=== PATIENT | male | born 1985 | race Caucasian/White ===

== ENCOUNTER 2021-10-18 17:29 | Emergency (ER) | payer OTHER, SELFPAY ==
[2021-10-18 17:40] VITALS: BP 139/94; PULSE 119; RESP 16; TEMP 38.2; O2SAT 100
--- NOTE | 2021-10-18 17:45 | ED.URI ---
HPI - URI/Sore Throat General Chief Complaint: Upper Respiratory Infection Stated Complaint: Achey,Ear Pain Time Seen by Provider: 10/18/21 17:32 Source: patient and RN notes reviewed History of Present Illness HPI Narrative: Patient is a 36-year-old male who presents the urgent care with complaints of body aches, bilateral ear pressure and cough. Patient states that his symptoms started last with a low-grade fever and has progressed into the cough. Patient states he has been taking Zyrtec and Tylenol for his symptoms. Patient has not been Covid vaccinated and denies of any recent exposures. Denies of any shortness of breath. No other acute complaints. No acute distress noted. Patient read the plan of care. Some parts of this dictation were generated by voice recognition software and may contain typographical and/or grammatical inaccuracies. Related Data Home Medications Medication Instructions Recorded Confirmed Concerta 10/18/21 Suboxone 10/18/21 Allergies Allergy/AdvReac Type Severity Reaction Status Date / Time No Known Allergies Allergy Verified 10/18/21 17:44 Review of Systems Review of Systems: CONSTITUTIONAL: Denies fever, chills, or sweats. EYES: Denies visual changes, redness, or discharge. ENT: Denies rhinorrhea, congestion, sore throat. Reports bilateral otalgia CARDIOVASCULAR: Denies chest pain, palpitations, or edema. RESPIRATORY: Reports of cough without dyspnea GASTROINTESTINAL: Denies abdominal pain, nausea, vomiting, or diarrhea. GENITOURINARY: Denies dysuria or hematuria. SKIN: Denies rash or itching. MUSCULOSKELETAL: Denies back pain, joint pain. Reports body aches NEUROLOGIC: Denies headache, numbness, or weakness. All other systems reviewed are negative, except as documented in HPI. PMFSH Comments At the time of my signature, I reviewed and agree with the nursing past medical, surgical, social, and family history. There is no relevant family history pertinent to the patient complaint. Exam Narrative: GENERAL: This is a well-nourished, well-developed patient, in no apparent distress. HEAD: normocephalic, atraumatic. EYES: PERRL. Sclera clear/white. Vision is grossly intact. EARS: External ears normal, auditory canals clear and without drainage, TMs normal without perforation. Hearing grossly intact. NOSE: External nose normal with no obvious nasal discharge, nares without redness, no rhinorrhea. THROAT: Mucous membranes moist, posterior pharynx clear. Moderate postnasal drainage NECK: Neck supple, mild bilateral nontender submandibular lymphadenopathy CARDIOVASCULAR: Regular rate and rhythm without murmurs, gallops, or rubs. RESPIRATORY: Slight crackle with diminished left lower lung sounds. Otherwise clear throughout SKIN: warm, intact with no suspicious lesions or rash, good texture and turgor. NEURO: awake, alert, and oriented to person, place and time. There were no obvious focal neurologic abnormalities. EXTREMITIES: No clubbing, cyanosis, or edema. Course Vital Signs Vital signs: Vital Signs Temperature 100.8 F H 10/18/21 17:40 Pulse Rate 119 H 10/18/21 17:40 Respiratory Rate 16 10/18/21 17:40 Blood Pressure 139/94 H 10/18/21 17:40 Pulse Oximetry 100 10/18/21 17:40 Temperature 100.8 F H 10/18/21 17:40 Pulse Rate 119 H 10/18/21 17:40 Respiratory Rate 16 10/18/21 17:40 Blood Pressure 139/94 H 10/18/21 17:40 Pulse Oximetry 100 10/18/21 17:40 Reviewed-patient is informed that they may have pre-hypertension or hypertension based on a blood pressure reading in the department. I recommend the patient call the primary care provider listed on their discharge instructions or a physician of their choice this week to arrange follow-up for further evaluation of possible pre-hypertension or hypertension. MDM - URI/Sore Throat MDM Narrative Medical decision making narrative: Advised patient to complete the oral antibiotic regimen as prescribed. Complete the
== END 2021-10-18 17:58 | disposition home or self-care (01) ==
PROVIDERS: Emergency Provider Nurse Practitioner Family
DX: J40 Bronchitis, not specified as acute or chronic (principal); J32.9 Chronic sinusitis, unspecified
CPT/HCPCS: 99213; G0463

== ENCOUNTER 2025-02-20 10:53 | Emergency (ER) | payer OTHER, SELFPAY ==
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
--- OUTSIDE RECORDS SUMMARY | 2025-02-20 10:57 | XMS_ITS | Referral Summary ---
Author Organization [facility] Address [address] [place] [address] Phone Care Team Providers Care Senior Benefits Manager Name Role Phone Cesar Woo MD Primary Care Provider [phone] Encounters Date Type Department Care Team Description 02/03/2025 Telephone [facility] [address] [address] Cesar Woo MD Medical Question/Miscellaneo us 02/03/2025 7:30 AM CDT Office Visit [facility] [address] [address] Millicent Montalvo NP Viral URI with cough (Primary Dx); Elevated glucose level; Mixed hyperlipidemia; Elevated LFTs; BMI 26.0-26.9,adult 01/06/2025 Results Follow-Up [facility] [address] [address] Smitha Pickett NP 01/02/2025 Telephone [facility] [address] [address] Cesar Woo MD Medical Question/Miscellaneo us from Last 3 Months Allergies No known active allergies Medications lisinopril-hydroC HLOROthiazide (ZESTORETIC) 20-25 mg per tablet Take 1 tablet by mouth every morning 90 tablet 1 024 Active Additional Information Patient not taking.Reported on 02/03/2025 albuterol HFA (PROVENTIL HFA,VENTOLIN HFA,PROAIR HFA) 90 mcg/actuation inhaler USE 2 INHALATIONS EVERY 4 HOURS NEEDED FOR WHEEZING 25.5 g 5 024 Active metoprolol XL (TOPROL-XL) 25 mg extended release tablet TAKE 1 TABLET DAILY 90 tablet 3 025 Active fluticasone propion-salmetero L (ADVAIR DISKUS) 100-50 mcg/dose diskus inhalerIndication s:Mild intermittent asthma without complication USE 1 INHALATION TWICE A DAY 3 each 3 025 Active Additional Information Patient not taking.Reported on 02/03/2025 QUEtiapine (SEROquel) 50 mg tablet 025 Active atorvastatin (LIPITOR) 10 mg tabletIndications :Mixed hyperlipidemia Take 1 tablet (10 mg total) by mouth daily 90 tablet 4 025 2025 Active traZODone (DESYREL) 50 mg tablet Take 1 tablet (50 mg total) by mouth nightly 90 tablet 3 025 Active methylphenidate HCl (RITALIN) 10 mg tablet Take 1 tablet (10 mg total) by mouth 2 (two) times a day 60 tablet 025 Active fluticasone propionate (FLONASE) 50 mcg/actuation nasal spray 023 2024 Discontinued(P atient Reported) fluticasone propion-salmetero L (ADVAIR DISKUS) 100-50 mcg/dose diskus inhalerIndication s:Mild intermittent asthma without complication Inhale 1 puff 2 (two) times a day 180 each 3 024 2024 Discontinued buprenorphine-nal oxone (SUBOXONE) 8-[address] 1/2 FILM UNDER THE TONGUE DIRECTED EVERY DAY 024 2024 Discontinued(P atient Reported) atorvastatin (LIPITOR) 10 mg tabletIndications :Mixed hyperlipidemia Take 1 tablet (10 mg total) by mouth daily 90 tablet 4 024 2024 Discontinued(P atient Reported) lisinopriL (PRINIVIL,ZESTRIL ) 10 mg tabletIndications :Hypertension, essential Take 1 tablet (10 mg total) by mouth daily 90 tablet 025 2024 Discontinued(P atient Reported) methylphenidate ER (Concerta) 54 mg CR tablet Take 1 tablet (54 mg total) by mouth every morning 30 tablet 025 2024 Discontinued(A lternate therapy) methylphenidate HCl (RITALIN) 10 mg tablet Take 1 tablet (10 mg total) by mouth 2 (two) times a day 60 tablet 025 2024 Discontinued(R eorder) atomoxetine (STRATTERA) 80 mg capsule 025 2024 Discontinued(A lternate therapy) escitalopram (LEXAPRO) 10 mg tablet 025 2024 Discontinued(A lternate therapy) traZODone (DESYREL) 50 mg tablet 025 2024 Discontinued(D uplicate order) traZODone (DESYREL) 100 mg tablet Take 2 tablets (200 mg total) by mouth 2024 Discontinued(A lternate therapy) traZODone (DESYREL) 50 mg tablet Take 1 tablet (50 mg total) by mouth nightly as needed for sleep 30 tablet 3 025 2024 Discontinued Active Problems Problem Noted Date Diagnosed Date Elevated glucose level 02/03/2025 Assessment & Plan (02/03/2025 7:56 AM CDT): A1C 4.8%. Viral URI with cough 02/03/2025 Assessment & Plan (02/03/2025 9:36 AM CDT): Recommend Mucinex, Flonase, Zyrtec, p.o. hydration. Discussed typical viral course. If worsening or not resolving let us know. Red flags reviewed. Elevated LFTs 06/12/2024 Assessment & Plan (02/03/2025 9:35 AM CDT): Continue abstaining from alcohol. Will continue to monitor. Assessment & Plan (06/12/2024 9:29 PM CDT): Reviewed labs, showing slightly elevated liver function tests. Patient reports daily alcohol use, proximally half pt of vodka/day. Stressed the need for alcohol reduction/cessation. Had conversation with patient regarding better coping skills/mechanism. He says he does not have problems with anxiety or depression. Previously attending AA. Will repeat lab work in 3 months. Mixed hyperlipidemia 06/12/2024 Assessment & Plan (02/03/2025 7:57 AM CDT): Restart atorvastatin. Will monitor response. Assessment & Plan (06/12/2024 9:30 PM CDT): Cholesterol is uncontrolled. Encouraged patient to follow healthier diet. He reports eating a diet high in red meat and boyle. Recommended starting a cholesterol- lowering medication. Patient is agreeable, discussed the need for alcohol cessation given slightly elevated LFTs and starting statin medication. Patient is understanding and agreeable. Will repeat LFTs and lipid panel in 3 months Acute viral syndrome 12/13/2023 Assessment & Plan (12/13/2023 5:23 PM STORAGE SPECIALIST): Symptoms improving, had no fever for the past 24 hours. Eating and drinking well. No further episodes of/V/D. Probable influenza as daughter tested positive for influenza A earlier this week. COVID/influenza testing negative today in office. No abnormal findings on exam. Encouraged continue symptomatic treatment and recommended increase use of albuterol inhaler during acute illness. Will follow- up with any new or worsening symptoms. Physical exam, annual 04/19/2023 Assessment & Plan (12/13/2023 5:16 PM STORAGE SPECIALIST): Preventive exam; reviewed recommended preventive screenings and vaccinations. Encourage annual flu vaccine. No indication for early cancer screening Assessment & Plan (04/19/2023 4:36 PM CDT): New patient; reviewed recommended preventive screenings and vaccinations. Reviewed patient reported medical, surgical and family history. W will request records from addiction medical art therapist. Hypertension, essential 04/19/2023 Assessment & Plan (06/12/2024 9:19 PM CDT): Blood pressure is well controlled, continue present management with lisinopril 30 mg daily and hydrochlorothiazide 25 mg daily. Encouraged patient to practice healthy lifestyle. Avoid excessive caffeine use. Assessment & Plan (12/13/2023 5:19 PM STORAGE SPECIALIST): Blood pressure well controlled, continue lisinopril-hctz 20-25 mg daily. Periodically monitoring blood pressure at home, averaging 118 systolic. Will add metoprolol 25 mg nightly for persistent tachycardia. Patient denies any chest pain, palpitations, shortness breath, headaches or visual disturbances. Assessment & Plan (04/19/2023 4:34 PM CDT): Blood pressure well controlled, continue lisinopril 10 mg daily. Lisinopril refilled. Mild intermittent asthma without complication Assessment & Plan (12/13/2023 5:18 PM STORAGE SPECIALIST): Started on Advair Diskus at office visit. Previously been using albuterol inhaler several times throughout the day. Has not required albuterol use since starting Advair. Lungs clear on exam today. Assessment & Plan (04/19/2023 4:37 PM CDT): Patient reports daily use of albuterol, 2 puffs every morning for wheezing. He reports significant environmental exposure to fumes. Patient is a nonsmoker. Will start maintenance inhaler, Advair 1 puff twice daily and monitor response. Opioid use disorder in remission 04/19/2023 Assessment & Plan (06/12/2024 9:20 PM CDT): Patient states he has continue to avoid illegal drug use, has been sober since 2007. Reportedly following with addiction Medicine Specialists Dr. Abbott. Was attempting to taper Suboxone however this seems to have been disrupted by unexpected illness of physician. Patient states that he is currently using Suboxone 2 mg films, approximately 15 films/month. Assessment & Plan (12/13/2023 5:17 PM STORAGE SPECIALIST): No illegal drug use since 2007. Following with addiction Medicine, Dr. Abbott. Continue tapering Suboxone currently taking Suboxone 2 mg films quantity 11/month. Assessment & Plan (04/19/2023 4:34 PM CDT): Following with addiction medicine, tells me that he is tapering Suboxone with plans to start medication in the next 3 months. No illegal drug use since 2007. Tachycardia 04/19/2023 Assessment & Plan (06/12/2024 4:44 PM CDT): Decrease methylphenidate. Currently taking 54 mg ER and 20 mg IR twice daily. Reduce dosage to 54 mg ER and 10 mg IR twice daily. 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 Stressed need to increase water intake. Will continues to monitor, will plan to check EKG. He denies any chest pain, sob, palpitations or fatigue. Reviewed s/s warranting immediate evaluation. Attention deficit disorder with hyperactivity Assessment & Plan (06/12/2024 9:22 PM CDT): Managed by Dr. Abbott. Will decrease dosage, see discussion above. Patient can continue to use 20 mg tablets broken in half until next refill. Explained to patient that we need to reduce dosage overall related to increased heart rate and medication tolerance. Assessment & Plan (12/13/2023 5:17 PM STORAGE SPECIALIST): Managed by Dr. Abbott, patient is taking Concerta 54 mg ER q.a.m. and 20 mg IR at noon and 4:00 pm Discussed concerns for elevated heart rate 2/2 stimulant use. Patient's blood pressure is well controlled and is also being managed by Dr. Abbott. Assessment & Plan (04/19/2023 4:31 PM CDT): Reports long history of ADHD, started on concerta several years ago per patient. Notes improvement with use of medication. No changes in appetite, moods, sleep pattern, chest pain or palpitations. HR elevated today. Medication prescribed by Dr. Abbott. Immunizations Immunization Administration Dates Next Due Influenza, Unspecified 02/03/2025(Deferr ed: Patient Refused),06/12/2024(Deferred: Patient Refused),12/13/2023(Deferred: Patient Refused),08/06/2023(Deferred: Patient Refused),08/05/2023(Deferred: Patient Refused),08/05/2023(Deferred: Patient Refused),08/05/2022(Deferred: Patient Refused),08/05/2022(Deferred: Patient Refused),08/05/2022(Deferred: Patient Refused),08/05/2021(Deferred: Patient Refused) Social History Tobacco Use Types Packs/Day Years Used Date Smoking Tobacco: Never Smokeless Tobacco: Current Chew Tobacco Cessation:Ready to Q uit: Not Asked; Counseling Given: Not Answered Comments:Smoking History Packs/day: 0 Units Alcohol Use Standard Drinks/Week Comments Yes 0 (1 standard drink = 0.6 oz pur e alcohol) PHQ-2 Answer Date Recorded PHQ-2 Total Score (If total score is 3 or more points, staff should administer the PHQ-9) 0 06/12/2024 Sex and Gender Information Value Date Recorded Sex Assigned at Not on file Legal Sex Male 12:31 AM STORAGE SPECIALIST Gender Identity Male 06/30/2023 2:27 PM CDT Sexual Orientation Straight 06/30/2023 2: 27 PM CDT Last Filed Vital Signs Vital Sign Reading Time Taken Comments Blood Pressure 114/80 02/03/2025 7:29 AM CDT Pulse 101 02/03/2025 7:29 AM CDT Temperature 36.7 C (98 F) 02/03/2025 7:29 AM CDT Respiratory Rate 18 02/03/2025 7:29 AM CDT Oxygen Saturation 99% 02/03/2025 7:29 AM CDT Inhaled Oxygen Concentration - - Weight 92.5 kg (204 lb) 02/03/2025 7:29 AM CDT Height 185.4 cm (6' 0.99 ) 02/03/2025 7:29 AM CD T Body Mass Index 26.92 02/03/2025 7:29 AM CDT Plan of Treatment Not on file Procedures Procedure Name Priority Date/Time Associated Diagnosis Comments POCT HEMOGLOBIN A1C Routine 02/03/2025 7 :50 AM CDT Elevated glucose level POC INFLUENZA A/B, COVID-19 ANTIGEN Routine 02/03/2025 7:41 AM CDT Viral URI with cough COMPREHENSIVE METABOLIC PANEL Routine 01/05/2025 9:47 AM STORAGE SPECIALIST Elevated LFTs LIPID PANEL Routine 01/05/2025 9:47 AM STORAGE SPECIALIST Mixed hyperlipidemia TSH Routine 01/05/2025 9:47 AM STORAGE SPECIALIST Thyroid disorder screening T4, FREE Routine 01/05/2025 9:47 AM STORAGE SPECIALIST Thyroid disorder screening from Last 3 Months Results * POCT hemoglobin A1c (02/03/2025 7:50 AM CDT) Hemoglobin A1C, POC 4.8 4.0 - 5.6 % Capillary blood 02/03/2025 7 :50 AM CDT Millicent Montalvo NP POINT OF CARE TEST ORDERAB LES Final Result * POC Influenza A/B, COVID-19 antigen (02/03/2025 7:41 AM CDT) Influenza A Ag, POC Negative Negative [facility] Influenza B Ag, POC Negative Negative [facility] COVID-19 Ag POC Presumptive Negative Presumptive Negative, Invalid [facility] Nasopharyngeal 02/03/2025 7: 41 AM CDT Millicent Mnotalvo NP POINT OF CARE TEST ORDERAB LES Final Result [facility] [address] [place] [address] * TSH (01/05/2025 9:47 AM STORAGE SPECIALIST) TSH 2.00 0.40 - 4.50 mIU/L [facility] Blood 01/05/2025 9:47 AM STORAGE SPECIALIST 01/05/2025 9:47 AM STORAGE SPECIALIST Narrative [facility] - 01/06/2025 4:13 AM STORAGE SPECIALIST FASTING:YES FASTING: YES Smitha Pickett NP LAB BLOOD ORDERABLES Final Result Performing Organization Address [facility]/ZIP Co de Phone Number [facility] [address] [place] [address] * T4, free (01/05/2025 9:47 AM STORAGE SPECIALIST) Free T4 1.2 0.8 - 1.8 ng/dL [facility] Blood 01/05/2025 9:47 AM STORAGE SPECIALIST 01/05/2025 9:47 AM STORAGE SPECIALIST Narrative [facility] - 01/06/2025 4:13 AM STORAGE SPECIALIST FASTING:YES FASTING: YES Smitha Pickett NP LAB BLOOD ORDERABLES Final Result Performing Organization Address [facility] Co de Phone Number [facility] [address] [place] [address] * (ABNORMAL) Lipid panel (01/05/2025 9:47 AM STORAGE SPECIALIST) Cholesterol 335(H) <200 mg/dL [facility] HDL 80 > OR = 40 mg/dL [facility] Triglycerides 157(H) <150 mg/dL [facility] LDL 223(H) mg/dL (calc) [facility] Comment: LDL-C levels > or = 190 mg/dL may indicate familial hypercholesterolemia (FH). Clinical assessment and measurement of blood lipid levels should be considered for all first degree relatives of patients with an FH diagnosis. LDL Cholesterol (LDL-C) levels > or = 300 mg/dL may indicate homozygous familial hypercholesterolemia (HoFH). Untreated, these extremely high LDL-C levels can result in premature CV events and mortality. Patients should be identified early and provided appropriate interventions to reduce the cumulative LDL-C burden from . For questions about testing for familial hypercholesterolemia, please call [employer] [facility] at .[email or web address].INFO. Antoni Akhtar, et al. J National Lipid Association Recommendations for Patient-Centered Management of Dyslipidemia: Part 1 Journal of Clinical Lipidology 2015;9(2), 129-169. Mina Rodriguez et al. (2014). Homozygous familial hypercholesterolaemia: new insights and guidance for clinicians to improve detection and clinical management. Heart Journal, 35(32), 7862-0920. Reference range: <100 Desirable range <100 mg/dL for primary prevention; <70 mg/dL for patients with CHD or diabetic patients with > or = 2 CHD risk factors. LDL-C is now calculated using the Kp-Vega calculation, which is a validated novel method providing better accuracy than the Friedewald equation in the estimation of LDL-C. Kp SS et al. JANELLE. 2013;310(19): 3317-5397 (http://education.C3Nano/faq/FWG407) Chol/HDL ratio 4.2 <5.0 (calc) [facility] Non-HDL, (LDL+VLDL) 255(H) <130 mg/dL (calc) [facility] Comment: Non-HDL level > or = 220 is very high and may indicate genetic familial hypercholesterolemia (FH). Clinical assessment and measurement of blood lipid levels should be considered for all first-degree relatives of patients with an FH diagnosis. For patients with diabetes plus 1 major ASCVD risk factor, treating to a non-HDL-C goal of <100 mg/dL (LDL-C of <70 mg/dL) is considered a therapeutic option. Blood 01/05/2025 9:47 AM STORAGE SPECIALIST 01/05/2025 9:47 AM STORAGE SPECIALIST Narrative [facility] - 01/06/2025 4:13 AM STORAGE SPECIALIST FASTING:YES FASTING: YES Smitha Pickett NP LAB BLOOD ORDERABLES Final Result [facility] [address] [facility] [place] [address] * (ABNORMAL) Comprehensive metabolic panel (01/05/2025 9:47 AM STORAGE SPECIALIST) Glucose 121(H) 65 - 99 mg/dL [facility] Comment: Fasting reference interval For someone without known diabetes, a glucose value between 100 and 125 mg/dL is consistent with prediabetes and should be confirmed with a follow-up test. BUN 27(H) 7 - 25 mg/dL [facility] Creatinine 1.08 0.60 - 1.29 mg/dL [facility] eGFR 89 > OR = 60 mL/min/1.7 3m2 [facility] BUN/creat ratio 25(H) 6 - 22 (calc) [facility] Sodium 137 135 - 146 mmol/L [facility] Potassium, pl 3.8 3.5 - 5.3 mmol/L [facility] Chloride 94(L) 98 - 110 mmol/L [facility] CO2 26 20 - 32 mmol/L [facility] Calcium 9.2 8.6 - 10.3 mg/dL [facility] Protein, sr 7.3 6.1 - 8.1 g/dL [facility] Albumin 4.7 3.6 - 5.1 g/dL [facility] GLOBULIN 2.6 1.9 - 3.7 g/dL (calc) [facility] Alb/glob ratio 1.8 1.0 - 2.5 (calc) [facility] Bilirubin, total 0.6 0.2 - 1.2 mg/dL [facility] Alk phos 49 36 - 130 U/L [facility] AST 121(H) 10 - 40 U/L [facility] ALT (SGPT) 71(H) 9 - 46 U/L [facility] Blood 01/05/2025 9:47 AM STORAGE SPECIALIST 01/05/2025 9:47 AM STORAGE SPECIALIST Narrative [facility] - 01/06/2025 4:13 AM STORAGE SPECIALIST FASTING:YES FASTING: YES Smitha Pickett TUBE MACHINE OPERATOR LAB BLOOD ORDERABLES Final Result [facility] [address] [id number] from Last 3 Months Insurance [facility] [employer] Address: [place] [id number] [facility] [employer] Address: [address] [place] [address] Care Teams Senior Benefits Manager Relationship Specialty Start Date End Date Cesar Woo MD [address] [place] [address] PCP - General Family Medicine 04/19/23
--- OUTSIDE RECORDS SUMMARY | 2025-02-20 10:57 | XMS_ITS | Clinical Summary ---
Author Organization [facility] Address [address] [address] Phone Care Team Providers Care Director Patient Financial Services Name Role Phone Cesar Woo MD Primary Care Provider [phone] [phone] Allergies No known active allergies Medications lisinopril-hydroC [...] oxone (SUBOXONE) 8-[address] / FILM UNDER THE TONGUE DIRECTED EVERY DAY [...] therapy) traZODone (DESYREL) 50 mg tablet 025 04/01/ 2025 Discontinued(D uplicate order) traZODone (DESYREL) 100 mg [...] 12/13/2023 Assessment & Plan (12/13/2023 5:23 PM REGISTERED PHARMACY TECHNICIAN): Symptoms improving, had no fever for the [...] 04/19/2023 Assessment & Plan (12/13/2023 5:16 PM REGISTERED PHARMACY TECHNICIAN): Preventive exam; reviewed recommended preventive screenings and vaccinations. Encourage annual flu vaccine. No indication for early cancer screening Assessment & Plan (04/19/2023 4:36 PM CDT): New patient; reviewed recommended preventive screenings and vaccinations. Reviewed patient reported medical, surgical and family history. W will request records from addiction medical payment poster. Hypertension, essential 04/19/2023 Assessment & Plan (06/12/2024 9:19 PM CDT): Blood pressure is well controlled, continue present management with lisinopril 30 mg daily and hydrochlorothiazide 25 mg daily. Encouraged patient to practice healthy lifestyle. Avoid excessive caffeine use. Assessment & Plan (12/13/2023 5:19 PM REGISTERED PHARMACY TECHNICIAN): Blood pressure well controlled, continue lisinopril-hctz 20-25 [...] complication Assessment & Plan (12/13/2023 5:18 PM REGISTERED PHARMACY TECHNICIAN): Started on Advair Diskus at office visit. [...] films/month. Assessment & Plan (12/13/2023 5:17 PM REGISTERED PHARMACY TECHNICIAN): No illegal drug use since 2007. Following [...] tolerance. Assessment & Plan (12/13/2023 5:17 PM REGISTERED PHARMACY TECHNICIAN): Managed by Dr. Abbott, patient is taking [...] elevated today. Medication prescribed by Dr. Abbott. Encounters Date Type Department Care Team Description 02/03/2025 7:30 AM CDT [facility] Visit [facility] [address] [address] Millicent Montalvo NP Viral URI with cough (Primary Dx); Elevated glucose level; Mixed hyperlipidemia; Elevated LFTs; BMI 26.0-26.9,adult 02/03/2025 Telephone [facility] [address] [address] Cesar Woo MD Medical Question/Miscellaneo us 01/06/2025 Results Follow-Up [facility] [address] [id number] Smitha Pickett NP 01/02/2025 Telephone [facility] [place] [address] [facility] [place] [address] Cesar Woo MD Medical Question/Miscellaneo us from Last 3 Months Immunizations Immunization Administration Dates Next Due Influenza, Unspecified 02/03/2025(Deferr ed: Patient Refused),06/12/2024(Deferred: Patient Refused),12/13/2023(Deferred: Patient Refused),08/06/2023(Deferred: Patient Refused),08/05/2023(Deferred: Patient Refused),08/05/2023(Deferred: Patient Refused),08/05/2022(Deferred: Patient Refused),08/05/2022(Deferred: Patient Refused),08/05/2022(Deferred: Patient Refused),08/05/2021(Deferred: Patient Refused) Surgical History Surgery Date Site/Laterality Comments MASTECTOMY Left Medical History Medical History Date Comments Hx Other Medical narcotic addict ion Asthma Hypertension Family History Medical History Relation Name Comments Other Brother 2 Alive and well; Other Father 2 Alive and well; Hypertension Mother Hypertension; Relation Name Status Comments Brother 1 Alive Brother 2 Father 1 Alive Father 2 Mother Social History Tobacco Use Types Packs/Day Years [...] on file Legal Sex Male 12:31 AM REGISTERED PHARMACY TECHNICIAN Gender Identity Male 06/30/2023 2:27 PM CDT Sexual Orientation Straight 06/30/2023 2: 27 PM CDT Obstetrics History Last Filed Vital Signs Vital Sign Reading [...] 02/03/2025 7:29 AM CDT Plan of Treatment Health Maintenance Due Date Last Done Comments Hepatitis C Screening 1984 DTaP/Tdap/Td Vaccine (1 - Tdap) 1995 Varicella Vaccines (1 of 2 - 13+ 2-dose series) 1997 Hepatitis B Screening 2002 Pneumococcal vaccine <65 (1 of 2 - PCV) 2003 Regular Well Visit/Exam 18-64 12/13/2024 12/13/2023 Depression Screening 06/12/2025 06/12/2024, 12/13/2023, 04/19/2023 Influenza Vaccine (Season Ended) 2025 HPV Vaccines Aged Out No longer eligi ble based on patient's age to complete this topic Procedures Procedure Name Priority Date/Time Associated Diagnosis Comments POCT HEMOGLOBIN A1C Routine 02/03/2025 7 :50 AM CDT Elevated glucose level POC INFLUENZA A/B, COVID-19 ANTIGEN Routine 02/03/2025 7:41 AM CDT Viral URI with cough COMPREHENSIVE METABOLIC PANEL Routine 01/05/2025 9:47 AM REGISTERED PHARMACY TECHNICIAN Elevated LFTs LIPID PANEL Routine 01/05/2025 9:47 AM REGISTERED PHARMACY TECHNICIAN Mixed hyperlipidemia TSH Routine 01/05/2025 9:47 AM REGISTERED PHARMACY TECHNICIAN Thyroid disorder screening T4, FREE Routine 01/05/2025 9:47 AM REGISTERED PHARMACY TECHNICIAN Thyroid disorder screening from Last 3 Months Results * POCT hemoglobin A1c (02/03/2025 7:50 AM CDT) Hemoglobin A1C, POC 4.8 4.0 - 5.6 % Capillary blood 02/03/2025 7 :50 AM CDT Millicent Montalvo NP POINT OF CARE TEST ORDERAB LES Final Result * POC Influenza A/B, COVID-19 antigen (02/03/2025 7:41 AM CDT) Influenza A Ag, POC Negative Negative [facility] Influenza B Ag, POC Negative Negative [facility] COVID-19 Ag POC Presumptive Negative Presumptive Negative, Invalid [facility] Nasopharyngeal 02/03/2025 7: 41 AM CDT Millicent Montalvo NP POINT OF CARE TEST ORDERAB LES Final Result Performing Organization Address City/[facility]/ZIP Co de Phone Number [facility] [address] [facility] [place] [address] * TSH (01/05/2025 9:47 AM REGISTERED PHARMACY TECHNICIAN) TSH 2.00 0.40 - 4.50 mIU/L [facility] Blood 01/05/2025 9:47 AM REGISTERED PHARMACY TECHNICIAN 01/05/2025 9:47 AM REGISTERED PHARMACY TECHNICIAN Narrative [facility] - 01/06/2025 4:13 AM REGISTERED PHARMACY TECHNICIAN FASTING:YES FASTING: YES Smitha Pickett NP LAB BLOOD ORDERABLES Final Result [facility] [address] [place] [address] * T4, free (01/05/2025 9:47 AM REGISTERED PHARMACY TECHNICIAN) Free T4 1.2 0.8 - 1.8 ng/dL [facility] Blood 01/05/2025 9:47 AM REGISTERED PHARMACY TECHNICIAN 01/05/2025 9:47 AM REGISTERED PHARMACY TECHNICIAN Narrative [facility] - 01/06/2025 4:13 AM REGISTERED PHARMACY TECHNICIAN FASTING:YES FASTING: YES us Smitha AlbaLenny Pickett HEATING PLANT SUPERINTENDENT LAB BLOOD ORDERABLES Final Result [facility] [address] [place] [address] * (ABNORMAL) Lipid panel (01/05/2025 9:47 AM REGISTERED PHARMACY TECHNICIAN) Cholesterol 335(H) <200 mg/dL [facility] HDL 80 > OR = 40 mg/dL [facility] Triglycerides 157(H) <150 mg/dL [facility] LDL 223(H) mg/dL (calc) [facility] Comment: LDL-C levels > or = 190 [...] about testing for familial hypercholesterolemia, please call [facility] Client Services at [email or web address]. Antoni T, et al. J National Lipid Association Recommendations for Patient-Centered Management of Dyslipidemia: Part 1 Journal of Clinical Lipidology 2015;9(2), 129-169. Parth Rodriguez. et al. (2014). Homozygous familial hypercholesterolaemia: new insights and guidance for clinicians to improve detection and clinical management. Heart Journal, 35(32), 7971-4936. Reference range: <100 Desirable range <100 mg/dL for primary prevention; <70 mg/dL for patients with CHD or diabetic patients with > or = 2 CHD risk factors. LDL-C is now calculated using the Kyle calculation, which is a validated novel method providing better accuracy than the Friedewald equation in the estimation of LDL-C. Kp MUHAMMAD et al. JANELLE. 2013;310(19): 3682-3468 (http://education.Leap.KeepTrax/faq/HWT566) Chol/HDL ratio 4.2 <5.0 (calc) [facility] Non-HDL, (LDL+VLDL) 255(H) <130 mg/dL (calc) [facility] Comment: Non-HDL level > or = 220 [...] a therapeutic option. Blood 01/05/2025 9:47 AM REGISTERED PHARMACY TECHNICIAN 01/05/2025 9:47 AM REGISTERED PHARMACY TECHNICIAN Narrative [facility] - 01/06/2025 4:13 AM REGISTERED PHARMACY TECHNICIAN FASTING:YES FASTING: YES Smitha Pickett NP LAB BLOOD ORDERABLES Final Result [facility] [address] [place] [address] * (ABNORMAL) Comprehensive metabolic panel (01/05/2025 9:47 AM REGISTERED PHARMACY TECHNICIAN) Glucose 121(H) 65 - 99 mg/dL [facility] [...] [facility] Blood 01/05/2025 9:47 AM REGISTERED PHARMACY TECHNICIAN 01/05/2025 9:47 AM REGISTERED PHARMACY TECHNICIAN Narrative [facility] - 01/06/2025 4:13 AM REGISTERED PHARMACY TECHNICIAN FASTING:YES FASTING: YES Smitha Pickett HEATING PLANT SUPERINTENDENT LAB BLOOD ORDERABLES Final Result Performing Organization Address City/State/[facility] Co de Phone Number [facility] [address] [place] [address] from Last 3 Months Insurance [facility] HMO/PPO Address: [facility] [address] [place] [address] [facility] HMO/PPO Address: [facility] [address] [place] [address] Care Teams Director Patient Financial Services Relationship Specialty Start Date End Date Cesar Woo MD [address] [place] [address] PCP - General Family Medicine 04/19/23
--- OUTSIDE RECORDS SUMMARY | 2025-02-20 10:57 | XMS_ITS | Clinical Summary ---
Author Organization [facility] Address [address] [place] [address] Care Team Providers Care Social Work Supervisor Name Role Phone Unavailable Primary Care Provider Unavailabl e Allergies No known active allergies Medications buprenorphine-na loxone (SUBOXONE) 4 mg-[address] under the tongue daily. Active methylphenidate 10 MG tablet Take 10 mg by mouth 2 (two) times daily. Active Family History Medical History Relation Comments Hypertension Paternal Grandfather Relation Status Comments Paternal Grandfather Social History Tobacco Use Types Packs/Day Years Used Date Smoking Tobacco: Never Smokeless Tobacco: Current Chew Alcohol Use Standard Drinks/Week Comments Yes 0 (1 standard drink = 0.6 oz pur e alcohol) occasional Sex and Gender Information Value Date Recorded Sex Assigned at Not on file Legal Sex Male 7:47 PM CDT Gender Identity Not on file Sexual Orientation Not on file Last Filed Vital Signs Vital Sign Reading Time Taken Comments Blood Pressure 148/91 02/08/2018 10:41 AM CDT Pulse 106 02/08/2018 10:41 AM CDT Temperature 37.4 C (99.3 F) 02/08/2018 10:41 AM CDT Respiratory Rate 16 02/08/2018 10:41 AM CDT Oxygen Saturation 99% 02/08/2018 10:41 AM CDT Inhaled Oxygen Concentration - - Weight 77.1 kg (170 lb) 02/08/2018 10:41 AM CDT Height 185.4 cm (6' 1 ) 02/08/2018 10:41 AM CDT Body Mass Index 22.43 02/08/2018 10:41 AM CDT Plan of Treatment Health Maintenance Due Date Last Done Comments Annual Physical 1987 Hepatitis C 2002 DTaP, Tdap and Td Vaccines ( 1 - Tdap) 2003 Hepatitis B Vaccines (1 of 3 - 19+ 3-dose series) 2003 COVID-19 Vaccine (1 - 2023-2 5 season) 2024 HPV Vaccines Aged Out No longer eligi ble based on patient's age to complete this topic Meningococcal B Vaccine Aged Out No l onger eligible based on patient's age to complete this topic Meningococcal Vaccine Aged Out No randy markus eligible based on patient's age to complete this topic Pneumococcal Vaccine: Pediat rics (0 to 5 Years) and At-Risk Patients (6 to 49 Years) Aged Out No longer eligible b ased on patient's age to complete this topic RSV Immunizations Under 20 Months Aged Out No longer eligible based on patient's age to complete this topic Insurance [employer]
--- OUTSIDE RECORDS SUMMARY | 2025-02-20 10:57 | XMS_ITS | Encounter Summary ---
Author Organization [facility] Address [address] [place] [address] Care Team Providers Care Mold Cutting Machine Operator Name Role Phone Cesar Woo MD Primary Care Provider [phone] [phone] Reason for Visit * Reason Onset Date Comments Medical Question/Miscellaneous 02/03/2025 Encounter Details Date Type Department Care Team (Late st Contact Info) Description 02/03/2025 Telephone [facility] [address] [address] Cesar Woo MD [address] [place] [id number] Medical Question/Miscellaneous Social History Tobacco Use Types Packs/Day Years Used Date Smoking Tobacco: Never Smokeless Tobacco: Current Chew Comments:Smoking History Pac ks/day: 0 Units Alcohol Use Standard Drinks/Week Comments Yes 0 (1 standard drink = 0.6 oz pur e alcohol) PHQ-2 Answer Date Recorded PHQ-2 Total Score (If total score is 3 or more points, staff should administer the PHQ-9) 0 06/12/2024 Sex and Gender Information Value Date Recorded Sex Assigned at Not on file Legal Sex Male 12:31 AM SCHOOL VOCATIONAL EDUCATOR Gender Identity Male 06/30/2023 2:27 PM CDT Sexual Orientation Straight 06/30/2023 2: 27 PM CDT documented as of this encounter Miscellaneous Notes * Telephone Encounter - Theresa Urbano - 02/03/2025 9:35 AM CDT Faxed tam to number below * Telephone Encounter - Devora Russell - 02/03/2025 8:58 AM CDT Medical Question/Miscellaneous Caller???s Concern: Erica with [facility] called to provide a fax number [phone] to send documents regarding patient. Does message need to be routed? Yes-Action Needed documented in this encounter Plan of Treatment Not on file documented as of this encounter Visit Diagnoses Not on filedocumented in this encounter Additional Health Concerns Infection Onset Date Last Indicated Resolved Time COVID: Suspected 02/03/2025 02/03/2025 02/03/2025 8:01 AM CDT documented as of this encounter Care Teams Mold Cutting Machine Operator Relationship Specialty Start Date End Date Cesar Woo MD [address] [place] [address] PCP - General Family Medicine 04/19/23 documented as of this encounter
[2025-02-20 11:16] VITALS: BP 113/82; PULSE 114; RESP 16; TEMP 36.2; O2SAT 100
--- OUTSIDE RECORDS SUMMARY | 2025-02-20 12:18 | XMS_ITS | Referral Summary ---
Author Organization [facility] Address [address] [facility] [address] [place] [address] Phone Care Team Providers Care Project Finance Analyst Name Role Phone Cesar Woo MD Primary Care Provider [phone] [phone] Encounters Date Type Department Care Team Description 02/03/2025 Telephone [facility] [address] [address] Cesar Woo MD Medical Question/Miscellaneo us 02/03/2025 7:30 AM CDT Office Visit [facility] [address] [address] Millicent Montalvo NP Viral URI with cough (Primary Dx); Elevated glucose level; Mixed hyperlipidemia; Elevated LFTs; BMI 26.0-26.9,adult 01/06/2025 Results [facility]-Up [facility] [address] [address] Smitha Pickett NP 01/02/2025 Telephone [facility] [address] [address] Cesar Woo MD Medical Question/Miscellaneo [...] 12/13/2023 Assessment & Plan (12/13/2023 5:23 PM TESTER WAFER SUBSTRATE): Symptoms improving, had no fever for the [...] 04/19/2023 Assessment & Plan (12/13/2023 5:16 PM TESTER WAFER SUBSTRATE): Preventive exam; reviewed recommended preventive screenings and vaccinations. Encourage annual flu vaccine. No indication for early cancer screening Assessment & Plan (04/19/2023 4:36 PM CDT): New patient; reviewed recommended preventive screenings and vaccinations. Reviewed patient reported medical, surgical and family history. W will request records from addiction electromedical equipment technician. Hypertension, essential 04/19/2023 Assessment & Plan (06/12/2024 9:19 PM CDT): Blood pressure is well controlled, continue present management with lisinopril 30 mg daily and hydrochlorothiazide 25 mg daily. Encouraged patient to practice healthy lifestyle. Avoid excessive caffeine use. Assessment & Plan (12/13/2023 5:19 PM TESTER WAFER SUBSTRATE): Blood pressure well controlled, continue lisinopril-hctz 20-25 [...] complication Assessment & Plan (12/13/2023 5:18 PM TESTER WAFER SUBSTRATE): Started on Advair Diskus at office visit. [...] films/month. Assessment & Plan (12/13/2023 5:17 PM TESTER WAFER SUBSTRATE): No illegal drug use since 2007. Following [...] tolerance. Assessment & Plan (12/13/2023 5:17 PM TESTER WAFER SUBSTRATE): Managed by Dr. Abbott, patient is taking [...] on file Legal Sex Male 12:31 AM TESTER WAFER SUBSTRATE Gender Identity Male 06/30/2023 2:27 PM CDT [...] COMPREHENSIVE METABOLIC PANEL Routine 01/05/2025 9:47 AM TESTER WAFER SUBSTRATE Elevated LFTs LIPID PANEL Routine 01/05/2025 9:47 AM TESTER WAFER SUBSTRATE Mixed hyperlipidemia TSH Routine 01/05/2025 9:47 AM TESTER WAFER SUBSTRATE Thyroid disorder screening T4, FREE Routine 01/05/2025 9:47 AM TESTER WAFER SUBSTRATE Thyroid disorder screening from Last 3 Months Results * POCT hemoglobin A1c (02/03/2025 7:50 AM CDT) Hemoglobin A1C, POC 4.8 4.0 - 5.6 % Capillary blood 02/03/2025 7 :50 AM CDT Millicent Montalvo NP POINT OF CARE TEST ORDERAB LES Final Result * POC Influenza A/B, COVID-19 antigen (02/03/2025 7:41 AM CDT) Influenza A Ag, POC Negative Negative [facility] Influenza B Ag, POC Negative Negative [facility] COVID-19 Ag POC Presumptive Negative Presumptive Negative, Invalid [facility] Nasopharyngeal 02/03/2025 7: 41 AM CDT Millicent Montalvo NP POINT OF CARE TEST ORDERAB LES Final Result [facility] [address] [place] [address] * TSH (01/05/2025 9:47 AM TESTER WAFER SUBSTRATE) TSH 2.00 0.40 - 4.50 mIU/L [facility] Blood 01/05/2025 9:47 AM TESTER WAFER SUBSTRATE 01/05/2025 9:47 AM TESTER WAFER SUBSTRATE Narrative [facility] - 01/06/2025 4:13 AM TESTER WAFER SUBSTRATE FASTING:YES FASTING: YES Smitha Pickett NP LAB BLOOD ORDERABLES Final Result Performing Organization Address [facility]/ZIP Co de Phone Number [facility] [address] [place] [address] * T4, free (01/05/2025 9:47 AM TESTER WAFER SUBSTRATE) Free T4 1.2 0.8 - 1.8 ng/dL [facility] Blood 01/05/2025 9:47 AM TESTER WAFER SUBSTRATE 01/05/2025 9:47 AM TESTER WAFER SUBSTRATE Narrative [facility] - 01/06/2025 4:13 AM TESTER WAFER SUBSTRATE FASTING:YES FASTING: YES Smitha Pickett NP LAB BLOOD ORDERABLES Final Result Performing Organization Address [facility] Co de Phone Number [facility] [address] [place] [address] * (ABNORMAL) Lipid panel (01/05/2025 9:47 AM TESTER WAFER SUBSTRATE) Cholesterol 335(H) <200 mg/dL [facility] HDL 80 > OR = 40 mg/dL [facility] Triglycerides 157(H) <150 mg/dL [facility] LDL 223(H) mg/dL (calc) [facility] Comment: LDL-C levels > or = 190 [...] about testing for familial hypercholesterolemia, please call [facility] Client Services at [email or web address]. Antoni Akhtar, et al. J National Lipid Association Recommendations for Patient-Centered Management of Dyslipidemia: Part 1 Journal of Clinical Lipidology 2015;9(2), 129-169. Mina Rodriguez et al. (2014). Homozygous familial hypercholesterolaemia: new insights and guidance for clinicians to improve detection and clinical management. Heart Journal, 35(32), 5495-3576. Reference range: <100 Desirable range <100 mg/dL for primary prevention; <70 mg/dL for patients with CHD or diabetic patients with > or = 2 CHD risk factors. LDL-C is now calculated using the Kp-Vega calculation, which is a validated novel method providing better accuracy than the Friedewald equation in the estimation of LDL-C. Kp SS et al. JANELLE. 2013;310(19): 6856-6380 (http://education.PingTank/faq/XIM250) Chol/HDL ratio 4.2 <5.0 (calc) [facility] Non-HDL, (LDL+VLDL) 255(H) <130 mg/dL (calc) [facility] Comment: Non-HDL level > or = 220 [...] a therapeutic option. Blood 01/05/2025 9:47 AM TESTER WAFER SUBSTRATE 01/05/2025 9:47 AM TESTER WAFER SUBSTRATE Narrative [facility] - 01/06/2025 4:13 AM TESTER WAFER SUBSTRATE FASTING:YES FASTING: YES Smitha Pickett NP LAB BLOOD ORDERABLES Final Result [facility] [address] [facility] [place] [address] * (ABNORMAL) Comprehensive metabolic panel (01/05/2025 9:47 AM TESTER WAFER SUBSTRATE) Glucose 121(H) 65 - 99 mg/dL [facility] [...] [facility] Blood 01/05/2025 9:47 AM TESTER WAFER SUBSTRATE 01/05/2025 9:47 AM TESTER WAFER SUBSTRATE Narrative [facility] - 01/06/2025 4:13 AM TESTER WAFER SUBSTRATE FASTING:YES FASTING: YES Smitha Pickett METALLURGICAL OR MATERIALS TECHNICIAN LAB BLOOD ORDERABLES Final Result [facility] [address] [place] [address] from Last 3 Months Insurance Care Teams Project Finance Analyst Relationship Specialty Start Date End Date Cesar Woo MD [address] [place] [address] PCP - General Family Medicine 04/19/23
--- OUTSIDE RECORDS SUMMARY | 2025-02-20 12:18 | XMS_ITS | Clinical Summary ---
Author Organization [facility] Address [address] [address] Phone Care Team Providers Care Burnisher And Bumper Name Role Phone Cesar Woo MD Primary Care Provider [phone] Allergies No known active allergies Medications lisinopril-hydroC [...] 12/13/2023 Assessment & Plan (12/13/2023 5:23 PM ACCOUNT MAINTENANCE REPRESENTATIVE): Symptoms improving, had no fever for the [...] 04/19/2023 Assessment & Plan (12/13/2023 5:16 PM ACCOUNT MAINTENANCE REPRESENTATIVE): Preventive exam; reviewed recommended preventive screenings and vaccinations. Encourage annual flu vaccine. No indication for early cancer screening Assessment & Plan (04/19/2023 4:36 PM CDT): New patient; reviewed recommended preventive screenings and vaccinations. Reviewed patient reported medical, surgical and family history. W will request records from addiction doctor of [facility]. Hypertension, essential 04/19/2023 Assessment & Plan (06/12/2024 9:19 PM CDT): Blood pressure is well controlled, continue present management with lisinopril 30 mg daily and hydrochlorothiazide 25 mg daily. Encouraged patient to practice healthy lifestyle. Avoid excessive caffeine use. Assessment & Plan (12/13/2023 5:19 PM ACCOUNT MAINTENANCE REPRESENTATIVE): Blood pressure well controlled, continue lisinopril-hctz 20-25 [...] complication Assessment & Plan (12/13/2023 5:18 PM ACCOUNT MAINTENANCE REPRESENTATIVE): Started on Advair Diskus at office visit. [...] films/month. Assessment & Plan (12/13/2023 5:17 PM ACCOUNT MAINTENANCE REPRESENTATIVE): No illegal drug use since 2007. Following [...] tolerance. Assessment & Plan (12/13/2023 5:17 PM ACCOUNT MAINTENANCE REPRESENTATIVE): Managed by Dr. Abbott, patient is taking [...] AM CDT [facility] Visit [facility] [address] [address] Millicent Montalvo NP Viral URI with cough (Primary Dx); Elevated glucose level; Mixed hyperlipidemia; Elevated LFTs; BMI 26.0-26.9,adult 02/03/2025 Telephone [facility] [address] [address] Cesar Woo MD Medical Question/Miscellaneo us 01/06/2025 Results Follow-Up [facility] [address] [id number] Smitha Pickett NP 01/02/2025 Telephone [facility] [place] [address] [place] [address] Cesar Woo MD Medical Question/Miscellaneo [...] on file Legal Sex Male 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 Gender Identity Male 06/30/2023 2:27 PM CDT [...] COMPREHENSIVE METABOLIC PANEL Routine 01/05/2025 9:47 AM ACCOUNT MAINTENANCE REPRESENTATIVE Elevated LFTs LIPID PANEL Routine 01/05/2025 9:47 AM ACCOUNT MAINTENANCE REPRESENTATIVE Mixed hyperlipidemia TSH Routine 01/05/2025 9:47 AM ACCOUNT MAINTENANCE REPRESENTATIVE Thyroid disorder screening T4, FREE Routine 01/05/2025 9:47 AM ACCOUNT MAINTENANCE REPRESENTATIVE Thyroid disorder screening from Last 3 Months Results * POCT hemoglobin A1c (02/03/2025 7:50 AM CDT) Hemoglobin A1C, POC 4.8 4.0 - 5.6 % Capillary blood 02/03/2025 7 :50 AM CDT Millicent Montalvo NP POINT OF CARE TEST ORDERAB LES Final Result * POC Influenza A/B, COVID-19 antigen (02/03/2025 7:41 AM CDT) Influenza A Ag, POC Negative Negative [facility] Influenza B Ag, POC Negative Negative [facility] COVID-19 Ag POC Presumptive Negative Presumptive Negative, Invalid [facility] Nasopharyngeal 02/03/2025 7: 41 AM CDT Millicent Montalvo NP POINT OF CARE TEST ORDERAB LES Final Result Performing Organization Address City/[facility]/ZIP Co de Phone Number [facility] [address] [facility] [place] [address] * TSH (01/05/2025 9:47 AM ACCOUNT MAINTENANCE REPRESENTATIVE) TSH 2.00 0.40 - 4.50 mIU/L [facility] Blood 01/05/2025 9:47 AM ACCOUNT MAINTENANCE REPRESENTATIVE 01/05/2025 9:47 AM ACCOUNT MAINTENANCE REPRESENTATIVE Narrative [facility] - 01/06/2025 4:13 AM ACCOUNT MAINTENANCE REPRESENTATIVE FASTING:YES FASTING: YES Smitha Pickett NP LAB BLOOD ORDERABLES Final Result [facility] [address] [place] [address] * T4, free (01/05/2025 9:47 AM ACCOUNT MAINTENANCE REPRESENTATIVE) Free T4 1.2 0.8 - 1.8 ng/dL [facility] Blood 01/05/2025 9:47 AM ACCOUNT MAINTENANCE REPRESENTATIVE 01/05/2025 9:47 AM ACCOUNT MAINTENANCE REPRESENTATIVE Narrative [facility] - 01/06/2025 4:13 AM ACCOUNT MAINTENANCE REPRESENTATIVE FASTING:YES FASTING: YES us Smitha AlbaLenny Pickett PHLEBOTOMY SPECIALIST LAB BLOOD ORDERABLES Final Result [facility] [address] [address] * (ABNORMAL) Lipid panel (01/05/2025 9:47 AM ACCOUNT MAINTENANCE REPRESENTATIVE) Cholesterol 335(H) <200 mg/dL [facility] HDL 80 > OR = 40 mg/dL [facility] Triglycerides 157(H) <150 mg/dL [facility] LDL 223(H) mg/dL (calc) [facility] Comment: LDL-C levels > or = 190 [...] about testing for familial hypercholesterolemia, please call [employer] at [email or web address]. Antoni T, et al. J National Lipid Association Recommendations for Patient-Centered Management of Dyslipidemia: Part 1 Journal of Clinical Lipidology 2015;9(2), 129-169. Parth Rodriguez. et al. (2014). Homozygous familial hypercholesterolaemia: new insights and guidance for clinicians to improve detection and clinical management. Heart Journal, 35(32), 6553-9620. Reference range: <100 Desirable range <100 mg/dL for primary prevention; <70 mg/dL for patients with CHD or diabetic patients with > or = 2 CHD risk factors. LDL-C is now calculated using the Kyle calculation, which is a validated novel method providing better accuracy than the Friedewald equation in the estimation of LDL-C. Kp MUHAMMAD et al. JANELLE. 2013;310(19): 3422-1775 (http://education.SezWho.[employer]/faq/QPW075) Chol/HDL ratio 4.2 <5.0 (calc) [facility] Non-HDL, (LDL+VLDL) 255(H) <130 mg/dL (calc) [facility] Comment: Non-HDL level > or = 220 [...] a therapeutic option. Blood 01/05/2025 9:47 AM ACCOUNT MAINTENANCE REPRESENTATIVE 01/05/2025 9:47 AM ACCOUNT MAINTENANCE REPRESENTATIVE Narrative [facility] - 01/06/2025 4:13 AM ACCOUNT MAINTENANCE REPRESENTATIVE FASTING:YES FASTING: YES Smitha Pickett NP LAB BLOOD ORDERABLES Final Result [facility] [address] [place] [address] * (ABNORMAL) Comprehensive metabolic panel (01/05/2025 9:47 AM ACCOUNT MAINTENANCE REPRESENTATIVE) Glucose 121(H) 65 - 99 mg/dL [facility] [...] [facility] Blood 01/05/2025 9:47 AM ACCOUNT MAINTENANCE REPRESENTATIVE 01/05/2025 9:47 AM ACCOUNT MAINTENANCE REPRESENTATIVE Narrative [facility] - 01/06/2025 4:13 AM ACCOUNT MAINTENANCE REPRESENTATIVE FASTING:YES FASTING: YES Smitha Pickett PHLEBOTOMY SPECIALIST LAB BLOOD ORDERABLES Final Result Performing Organization Address City/State/[facility] Co de Phone Number [facility] [address] [place] [address] from Last 3 Months Insurance [facility] H[facility]PPO Address: [facility] [address] [place] [address] [facility] H[facility]/PPO Address: [facility] [address] [place] [address] Care Teams Burnisher And Bumper Relationship Specialty Start Date End Date Cesar Woo MD [address] [place] [address] PCP - General Family Medicine 04/19/23
--- OUTSIDE RECORDS SUMMARY | 2025-02-20 12:18 | XMS_ITS | Clinical Summary ---
Author Organization [facility] Address [address] [place] [address] Care Team Providers Care Bucket Turner Name Role Phone Unavailable Primary Care Provider [...]
--- OUTSIDE RECORDS SUMMARY | 2025-02-20 12:18 | XMS_ITS | Encounter Summary ---
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 Does message need to be routed? Yes-Action Needed documented in this encounter Plan of Treatment Not on file documented as of this encounter Visit Diagnoses Not on filedocumented in this encounter Additional Health Concerns Infection Onset Date Last Indicated Resolved Time COVID: Suspected 02/03/2025 02/03/2025 02/03/2025 8:01 AM CDT documented as of this encounter Care Teams Cotton Picker Operator Relationship Specialty Start Date End Date Cesar Woo MD [address] [place] [address] PCP - General Family Medicine 04/19/23 documented as of this encounter
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
[2025-02-20] MEDS: KETOROLAC 30 MG/ML VIAL (*BKC) IM (12:50)
[2025-02-20] MEDS: CYCLOBENZAPRINE HCL 10 MG TABLET PO (12:51)
[2025-02-20 13:21] LABS: Add Urine Microscopic? NO; Appearance Urine Clear (Clear); Bilirubin Urine Negative (Negative); Blood Urine Negative (Negative); Color Urine Yellow (Yellow); Glucose Urine UA Negative (Negative); Ketones Urine Negative (Negative); Leukocyte Esterase Ur Negative LEU/UL (Negative); Nitrate Urine Negative (Negative); Protein Urine Negative (Negative); Specific Grav Ur 1.019 (1.001-1.035); Urobilinogen Urine 0.2 mg/dL (<2.0); pH Urine 6.5 (5.0-9.0)
[2025-02-20 13:59] VITALS: BP 115/78; PULSE 88; RESP 16; TEMP 36.8; O2SAT 100
== END 2025-02-20 13:59 | disposition home or self-care (01) ==
PROVIDERS: Emergency Provider Emergency Medicine; PCP Family Medicine
DX: S39.92XA Unspecified injury of lower back, initial encounter (principal); V48.5XXA Car driver injured in noncollision transport accident in traffic accident, initial encounter
CPT/HCPCS: 72072; 72100; 81003; 96372; 99283; A9270; J1885